=== PATIENT | male | born 1925 | race Caucasian/White ===

== ENCOUNTER 2016-12-09 00:28 | Emergency (ER) | payer SELFPAY ==
[~2016-12-09] VITALS: Ht 167.6 cm; Wt 95.0 kg
[2016-12-09 00:40] VITALS: RESP 18; O2SAT 99
[2016-12-09 00:41] VITALS: BP 129/70; PULSE 66; RESP 18; TEMP 98.9; O2SAT 97
[2016-12-09] MEDS ORDERED: SODIUM CHLOR 0.9% 1000 ML INJ 1,000 ML IV ONE (00:48)
--- NOTE | 2016-12-09 00:51 | PD ---
HPI Chief Complaint: Fall Time Seen by Provider: 00:48 Travel History International Travel<30 days: No Contact w/Intl Traveler<30days: No Traveled to known affect area: No History of Present Illness HPI 89-year-old male presents to the emergency department by EMS transport for evaluation of head injury. Patient states she was up out of bed and just tripped and fell and hit his head. Patient denies loss of consciousness. Patient denies headache neck pain back pain chest pain abdominal pain rib pain pelvic pain or extremity pain. Patient denies being dizzy or lightheaded prior to the fall or after the fall. Patient rates his overall pain 7/10. PFSH Past Medical History Narrative Medical Hypertension dyslipidemia gouty arthritis pacemaker Social History Tobacco Use: No Allergies-Medications (Allergen,Severity, Reaction): Coded Allergies: No Known Allergies (Unverified , 12/09/16) Reported Meds & Prescriptions Reported Meds & Active Scripts Active Reported Vitamin B-12 (Cyanocobalamin) 1,000 Mcg Subl 1,000 Mcg SL DAILY Vitamin D3 (Cholecalciferol) 2,000 Unit Cap 2,000 Units PO DAILY Isosorbide Mononitrate ER (Isosorbide Mononitrate) 60 Mg Tab 60 Mg PO DAILY Potassium Chloride ER (Potassium Chloride) 20 Meq Tab 20 Meq PO BID Metolazone 2.5 Mg Tab 2.5 Mg PO DAILY Lasix (Furosemide) 40 Mg Tab 40 Mg PO BID Flonase Nasal [place] (Fluticasone Nasal [place]) 50 Mcg/Act [place] 50 Mcg EACH NARE BID Enalapril (Enalapril Maleate) 2.5 Mg Tab 2.5 Mg PO BID Eliquis (Apixaban) 5 Mg Tab 5 Mg PO BID Carvedilol 3.125 Mg Tab 3.125 Mg PO BID Allopurinol 100 Mg Tab 100 Mg PO DAILY Narrative Medication Eliquis Review of Systems Except as stated in HPI: all other systems reviewed are Neg General / Constitutional: No: Fever, Chills Eyes: No: Visual changes HENT: No: Headaches, Neck Stiffness, Neck Pain Cardiovascular: No: Chest Pain or Discomfort Respiratory: No: Shortness of Breath Genitourinary: No: Flank Pain Musculoskeletal: No: Myalgias, Arthralgias Skin: No Rash Neurologic: No: Weakness Hematologic/Lymphatic: No: Lymph Node Enlargement Physical Exam Narrative GENERAL: Well-developed well-nourished male in no acute distress no respiratory distress bandage on the scalp; GCS 15 SKIN: Warm and dry. HEAD: Atraumatic. Normocephalic. EYES: Pupils equal and round. No scleral icterus. No injection or drainage. ENT: No nasal bleeding or discharge. Mucous membranes pink and moist. NECK: Trachea midline. No JVD. CARDIOVASCULAR: Regular rate and rhythm. RESPIRATORY: No accessory muscle use. Clear to auscultation. Breath sounds equal bilaterally. GASTROINTESTINAL: Abdomen soft, non-tender, nondistended. Hepatic and splenic margins not palpable. MUSCULOSKELETAL: Extremities without clubbing, cyanosis, or edema. No obvious deformities. NEUROLOGICAL: Awake and alert. No obvious cranial nerve deficits. Motor grossly within normal limits. Five out of 5 muscle strength in the arms and legs. Normal speech. PSYCHIATRIC: Appropriate mood and affect; insight and judgment normal. Data Data Last Documented VS Vital Signs Date Time Temp Pulse Resp B/P (MAP) Pulse Ox O2 Delivery O2 Flow Rate FiO2 12/09/16 08:43 12/09/16 07:56 71 20 95 Room Air 12/09/16 00:[address] Brain W/O Iv Contrast(Rout) (12/09/16 ) Ct Cerv Spine W/O Contrast (12/09/16 ) Electrocardiogram (12/09/16 00:48) Basic Metabolic Panel (Bmp) (12/09/16 00:48) Complete Blood Count With Diff (12/09/16 00:48) Ckmb (Isoenzyme) Profile (12/09/16 00:48) Troponin I (12/09/16 00:48) Act Partial Throm Time (Ptt) (12/09/16 00:48) Prothrombin Time / Inr (Pt) (12/09/16 00:48) Chest, Single Ap (12/09/16 00:48) Ecg Monitoring (12/09/16 00:48) Iv Access Insert/Monitor (12/09/16 00:48) Oximetry (12/09/16 00:48) Sodium Chloride 0.9% Flush (Ns Flush) (12/09/16 01:00) Sodium Chlor 0.9% 1000 Ml Inj (Ns 1000 M (12/09/16 00:48) Tetanus/Diphtheria Tox Adult (Tetanus/Di (12/09/16 01:00) Type And Screen (12/09/16 00:48) CKMB (12/09/16 00:40) CKMB% (12/09/16 00:40) Potassium Chloride (Kcl) (12/09/16 02:30) Ed Discharge Order (12/09/16 04:00) Direct Kasia (12/09/16 00:40) Labs Laboratory Tests Test 12/09/16 00:40 White Blood Count 6.2 TH/MM3 Red Blood Count 4.48 MIL/MM3 Hemoglobin 15.0 GM/DL Hematocrit 42.9 % Mean Corpuscular Volume 95.8 FL Mean Corpuscular Hemoglobin 33.6 PG Mean Corpuscular Hemoglobin Concent 35.0 % Red Cell Distribution Width 13.8 % Platelet Count 153 TH/MM3 Mean Platelet Volume 9.2 FL Neutrophils (%) (Auto) 57.4 % Lymphocytes (%) (Auto) 30.0 % Monocytes (%) (Auto) 9.5 % Eosinophils (%) (Auto) 2.4 % Basophils (%) (Auto) 0.7 % Neutrophils # (Auto) 3.6 TH/MM3 Lymphocytes # (Auto) 1.9 TH/MM3 Monocytes # (Auto) 0.6 TH/MM3 Eosinophils # (Auto) 0.2 TH/MM3 Basophils # (Auto) 0.0 TH/MM3 CBC Comment DIFF FINAL Differential Comment Prothrombin Time 11.4 SEC Prothromb Time International Ratio 1.0 RATIO Activated Partial Thromboplast Time 26.6 SEC Blood Urea Nitrogen 22 MG/DL Creatinine 0.93 MG/DL Random Glucose 103 MG/DL Calcium Level 8.6 MG/DL Sodium Level 139 MEQ/L Potassium Level 2.8 MEQ/L Chloride Level 103 MEQ/L Carbon Dioxide Level 26.8 MEQ/L Anion Gap 9 MEQ/L Estimat Glomerular Filtration Rate 77 ML/MIN Total Creatine Kinase 151 U/L Creatine Kinase MB 4.1 NG/ML Troponin I LESS THAN 0.02 NG/ML MDM Medical Decision Making Medical Screen Exam Complete: Yes Emergency Medical Condition: Yes Medical Record Reviewed: Yes Interpretation(s) EKG: Electronically ventricular paced rhythm rate 67 Differential Diagnosis Minor closed head injury, intracranial bleed, skull fracture, cervical spine sprain strain fracture cord injury, arrhythmia, electronic disturbance, [place] Narrative Course IV access obtained specimens collected and sent for resulting patient sent stat for CT brain noncontrast as is identified patient is on Eliquis Imaging studies revealed no acute abnormality Patient is identified for hypokalemia which she has had an especially taking potassium supplements but did not take them today; patient given oral potassium replacement Patient is able to ambulate with assistance of walker which she reports is his mode of transportation and ambulation at home; patient is waiting on right and will be discharged with [facility] as patient does not have his own walker with them and does not have steady enough gait ambulate and dependently without walker assistance. Diagnosis Primary Impression: Minor closed head injury Additional Impressions: Scalp abrasion Hypokalemia Referrals: Primary Care Physician 2 days Patient Instructions: General Instructions Additional Instructions: Follow head injury precautions 24 hours Use walker at all times to assist with ambulation Follow-up with your primary care provider call office in a.m. to schedule follow -up appointment Apply ice intermittently to areas of soft tissue swelling Return to the emergency department for any concerns or change in condition Continue to take supplemental potassium as directed and add potassium pain foods and beverages to dietary intake Disposition: 01 DISCHARGE HOME Condition: Stable Fabienne Marcial MD Dec 09, 2016 00:51
[2016-12-09] MEDS ORDERED: SODIUM CHLORIDE 0.9% FLUSH 10 ML FLUSH IVF PRN (01:00)
[2016-12-09] MEDS ORDERED: TETANUS/DIPHTHERIA TOXOID ADULT 0.5 ML VIAL IM ONE (01:00)
--- NOTE | 2016-12-09 01:08 | RADRPT ---
EXAM DATE/TIME: 12/09/2016 00:51 [facility] COMPARISON: No previous studies available for comparison. INDICATIONS : Head laceration from a fall. MEDICAL HISTORY : None. SURGICAL HISTORY : Pacemaker. ENCOUNTER: Initial ACUITY: 1 day PAIN SCORE: 0/10 LOCATION: Bilateral chest FINDINGS: A single AP erect portable view of the chest was obtained. There is mild motion artifact. There is a left subclavian transvenous pacer in place. There is moderate cardiomegaly. No confluent infiltrates or effusions. There is no perihilar edema. There are mild atherosclerotic changes in the aorta. CONCLUSION: 1. Mild motion artifact. 2. Cardiomegaly with no pulmonary edema. Jordan Navarro MD on December 09, 2016 at 1:06 Board Certified Radiologist. This report was verified electronically.
--- NOTE | 2016-12-09 01:29 | RADRPT ---
EXAM DATE/TIME: 12/09/2016 01:03 [facility] COMPARISON: No previous studies available for comparison. INDICATIONS : Trauma; fall. Subfalcial. RADIATION DOSE: 56.35 CTDIvol (mGy) MEDICAL HISTORY : None SURGICAL HISTORY : None. ENCOUNTER: Initial ACUITY: 1 day PAIN SCALE: 5/10 LOCATION: cranial TECHNIQUE: Multiple contiguous axial images were obtained of the head. Using automated exposure control and adj ustment of the mA and/or kV according to patient size, radiation dose was kept as low as reasonably a chievable to obtain optimal diagnostic quality images. DICOM format image data is available electro nically for review and comparison. FINDINGS: CEREBRUM: The ventricles are normal for age with moderate to severe cerebral atrophy with sulcal and ventricula r prominence. No evidence of midline shift, mass lesion, hemorrhage or acute infarction. No extra-ax ial fluid collections are seen. POSTERIOR FOSSA: The cerebellum and brainstem are intact. The 4th ventricle is midline. The cerebellopontine angle i s unremarkable. EXTRACRANIAL: The visualized portion of the orbits is intact. SKULL: The calvaria is intact. No evidence of skull fracture. CONCLUSION: Negative trauma CT Jordan Navarro MD on December 09, 2016 at 1:27 Board Certified Radiologist. This report was verified electronically.
[2016-12-09 01:30] LABS: AUTOMATED NEUTROPHIL # 3.6 TH/MM3 (1.8-7.7); BASOPHIL % 0.7 % (0.0-2.0); EOSINOPHIL # 0.2 TH/MM3 (0-0.4); EOSINOPHIL % 2.4 % (0.0-4.0); HEMATOCRIT 42.9 % (39.0-51.0); HEMO FLAGS DIFF FINAL; LYMPHOCYTE # 1.9 TH/MM3 (1.0-4.8); MEAN CELL VOLUME 95.8 FL (80.0-100.0); MEAN CORPUSCULAR HEMOGLOBIN 33.6 PG (27.0-34.0); MONO % 9.5 % (0.0-8.0); NEUT % 57.4 % (16.0-70.0); PLATELET COUNT 153 TH/MM3 (150-450); RED BLOOD COUNT 4.48 MIL/MM3 (4.50-5.90); RED CELL DISTRIBUTION WIDTH 13.8 % (11.6-17.2); WHITE BLOOD COUNT 6.2 TH/MM3 (4.0-11.0)
--- NOTE | 2016-12-09 01:46 | RADRPT ---
EXAM DATE/TIME: 12/09/2016 01:05 [facility] COMPARISON: No previous studies available for comparison. INDICATIONS : Trauma, fall. RADIATION DOSE: 41.65 CTDIvol (mGy) MEDICAL HISTORY : None SURGICAL HISTORY : Pacemaker. ENCOUNTER: Initial ACUITY: 1 day PAIN SCALE: 4/10 LOCATION: neck TECHNIQUE: Volumetric scanning of the cervical spine was performed. Multiplanar reconstructions i n the sagittal, coronal and oblique axial planes were performed. Using automated exposure control a nd adjustment of the mA and/or kV according to patient size, radiation dose was kept as low as reason ably achievable to obtain optimal diagnostic quality images. DICOM format image data is available e lectronically for review and comparison. FINDINGS: The sagittal reconstructions demonstrate normal alignment and normal prevertebral soft tissues. The d ens is intact and there is a normal atlantoaxial relationship. Degenerative disc changes present at t he C5-6 and C6-7 levels with mild disc space narrowing and hypertrophic change. There are degenerativ e changes involving the atlantoaxial joint. The axial images demonstrate that the vertebral bodies and posterior elements are intact. The soft ti ssues are within normal limits. There is no evidence of acute fracture or malalignment. There are hyp ertrophic changes involving several of the facet joints. CONCLUSION: Negative trauma CT. Jordan Navarro MD on December 09, 2016 at 1:43 Board Certified Radiologist. This report was verified electronically.
[2016-12-09 01:47] LABS: APTT (PATIENT) 26.6 SEC (24.3-30.1); PROTHROMBIN TIME - PATIENT 11.4 SEC (9.8-11.6)
[2016-12-09 01:55] LABS: ANION GAP 9 MEQ/L (5-15); BICARBONATE 26.8 MEQ/L (21.0-32.0); BLOOD UREA NITROGEN 22 MG/DL (7-18); CHLORIDE 103 MEQ/L (98-107); CREATINE KINASE 151 U/L (39-308); GLOMERULAR FILTRATION RATE 77 ML/MIN (>89); SODIUM (NA) 139 MEQ/L (136-145)
[2016-12-09 01:56] LABS: POTASSIUM 2.8 MEQ/L (3.5-5.1)
[2016-12-09 02:11] LABS: CKMB 4.1 NG/ML (0.5-3.6)
[2016-12-09] MEDS ORDERED: POTA-163 PO (02:28)
[2016-12-09] MEDS ORDERED: ENAL2.5T PO (02:28)
[2016-12-09] MEDS ORDERED: FLUT1SPR5 EACH NARE (02:28)
[2016-12-09] MEDS ORDERED: APIX5TAB PO (02:28)
[2016-12-09] MEDS ORDERED: ALLO100T PO (02:28)
[2016-12-09] MEDS ORDERED: CARV3.12 PO (02:28)
[2016-12-09] MEDS ORDERED: FURO1TAB60 PO (02:28)
[2016-12-09] MEDS ORDERED: VITA2000 PO (02:28)
[2016-12-09] MEDS ORDERED: METO2.5T PO (02:28)
[2016-12-09] MEDS ORDERED: VITA100021 SL (02:28)
[2016-12-09] MEDS ORDERED: ISOS60TA PO (02:28)
[2016-12-09] MEDS ORDERED: POTASSIUM CHLORIDE 20 MEQ CONTROLLED RELEASE TAB PO ONE (02:30)
[2016-12-09 07:56] VITALS: BP 137/77; PULSE 71; RESP 20; O2SAT 95
--- NOTE | 2016-12-09 13:19 | EKG ---
Date Performed: 12/09/2016 Time Performed: 00:37:53 PTAGE: 89 years EKG: ELECTRONIC VENTRICULAR PACEMAKER ABNORMAL RHYTHM ECG NO PREVIOUS TRACING DOCTOR: Norman Eli Interpretating Date/Time 12/09/2016 13:18:29
== END 2016-12-09 08:46 | disposition home or self-care (01) ==
LOC: NEPC 00:28 → NEPD 08:46
DX: S09.90XA Unspecified injury of head, initial encounter (principal); S00.01XA Abrasion of scalp, initial encounter; E87.6 Hypokalemia; I51.7 Cardiomegaly; R94.31 Abnormal electrocardiogram [ECG] [EKG]; I10 Essential (primary) hypertension; E78.5 Hyperlipidemia, unspecified; W01.0XXA Fall on same level from slipping, tripping and stumbling without subsequent striking against object, initial encounter; Z23 Encounter for immunization
CPT/HCPCS: 70450; 71010; 72125; 80048; 82550; 82552; 84484; 85025; 85610; 85730; 86077; 86850; 86870; 86880; 86900; 86901; 90471; 90714; 93005; 96360; 99285; J7030